=== PATIENT | female | born 1955 | race Caucasian/White ===

== ENCOUNTER 2019-10-15 12:29 | Outpatient (CLI) | payer BC, SELFPAY ==
[2019-10-15 13:03] LABS: Basophils Percent Auto 0.4 % (0.2-1.2); Eosinophils Absolute Auto 0.2 K/mm3 (0-0.3); Eosinophils Percent Auto 2.8 % (0-4.4); Hematocrit 37.7 % (37.0-47.0); Hemoglobin 12.8 g/dL (12.0-15.0); Immature Granulocyte Absolute 0.03 K/mm3 (0.00-0.031); Immature Granulocyte Percent A 0.4 % (0-0.5); Lymphocytes Absolute Auto 1.86 K/mm3 (0.9-3.2); Lymphocytes Percent Auto 27.5 % (18.3-44.2); Mean Corpuscular Hemoglobin 30.4 pg (26-34); Mean Corpuscular Volume 89.5 fl (80-100); Mean Platelet Volume 9.9 fl (7.4-10.4); Monocytes Absolute Auto 0.5 K/mm3 (0.1-0.6); Monocytes Percent Auto 7.1 % (2.6-8.5); Neutrophils Absolute Auto 4.2 K/mm3 (1.3-6.7); Neutrophils Percent Auto 61.8 % (45.5-73.1); Platelet Count Result 250 k/mm3 (150-375); Red Blood Count 4.21 M/mm3 (4.2-5.4); Red Cell Distribution Width 12.7 % (11.5-14.5); White Blood Count 6.8 K/mm3 (4.5-10.0)
[2019-10-15 13:16] LABS: Alanine Aminotransferase 23 U/L (4-35); Albumin Level 4.4 g/dL (3.5-5.1); Alkaline Phosphatase 72 U/L (38-126); Aspartate Amino Transferase 29 U/L (14-36); Bilirubin,Total 0.2 mg/dL (0.2-1.3); Blood Urea Nitrogen 23 mg/dL (7-17); Calcium 9.6 mg/dL (8.4-10.2); Carbon Dioxide 27 mmol/L (22-30); Chloride 104 mmol/L (98-107); Cholesterol 246 mg/dL (0-200); Estimated Glomerular Filt Rate 50; Glucose 114 mg/dL (65-105); HDL Direct 55 mg/dL; Potassium 3.6 mmol/L (3.4-5.0); Sodium 139 mmol/L (137-145); Triglycerides 200 mg/dL (<150)
[2019-10-15 13:28] LABS: LDL Cholesterol Direct 141 mg/dL
== END 2019-10-15 12:30 | disposition home or self-care (01) ==
PROVIDERS: PCP Family Medicine; Visit Provider Nurse Practitioner
DX: E78.5 Hyperlipidemia, unspecified (principal); I10 Essential (primary) hypertension
CPT/HCPCS: 36415; 80053; 80061; 85025

== ENCOUNTER 2020-05-12 13:39 | Outpatient (CLI) | payer BC, SELFPAY ==
--- NOTE | ~2020-05-12 | XR_ITS ---
XR lumbar spine 2-3V DATE: 05/12/2020 14:04 INDICATION: Low back pain. No injury. TECHNIQUE: AP, lateral, coned lateral lumbosacral views COMPARISON: None FINDINGS: Diffuse osteopenia. Degenerative spurring is noted in the lower thoracic spine. No fracture or bone destruction or spondylolisthesis of the lumbar spine is evident. The lumbar pedic les are intact. There is mild lumbar dextroscoliosis. There is severe degenerative disc disease at L3-4 and L4-5. The sacroiliac joints are intact. Status post cholecystectomy. There is a prominent amount of fecal material within the colon but no apparent bowel obstruction. Mul tiple splenic calcified granulomas. IMPRESSION: Severe degenerative disc disease at L3-4 and L4-5 Osteopenia Reviewed, dictated and finalized at location B. AINABILITY DIRECTOR
== END 2020-05-12 13:40 | disposition home or self-care (01) ==
LOC: ANHIMG 13:48
PROVIDERS: PCP Family Medicine; Visit Provider Nurse Practitioner
DX: M54.5 Low back pain (principal); M20.21 Hallux rigidus, right foot; M20.22 Hallux rigidus, left foot; M51.36 Other intervertebral disc degeneration, lumbar region; M85.88 Other specified disorders of bone density and structure, other site
CPT/HCPCS: 72100; 77002

== ENCOUNTER 2020-11-19 07:54 | Outpatient (CLI) | payer BC, SELFPAY ==
--- NOTE | ~2020-11-19 | DEXA_ITS ---
Bone Density Report Name: Erin Abraham Age: 65 Sex: Female Ethnicity: White Date of : 1955 Indication: postmenopausal; cancer; hysterectomy; Referring Provider: Olivia Hendrickson Study: Bone densitometry was performed. Exam Date: November 19, 2020 Accession number: [id number] Bone Density: Region BMD T-score Z-score Classification AP Spine (L1, L2) 1.083 0.9 2.5 Normal Femoral Neck (Left) 0.753 -0.9 0.6 Normal Total Hip (Left) 1.023 0.7 1.8 Normal Total Hip Bilateral Avg 1.004 0.5 1.7 Normal Femoral Neck (Right) 0.729 -1.1 0.4 Osteopenia Total Hip (Right) 0.984 0.3 1.5 Normal World Health Organization criteria for BMD impression classify patients as: Normal (T-score at or above -1.0), Osteopenia (T-score between -1.0 and -2.5), or Osteoporosis (T-score at or below -2.5). 10-year Fracture Risk(1): Major Osteoporotic Fracture 6.6% Hip Fracture 0.4% Reported Risk Factors: [place] (), Neck BMD=0.729, BMI=48.2 (1) FRAX(R) Version 3.08. Fracture probability calculated for an untreated patient. Fracture probability may be lower if the patient has received treatment. Clinical Information Provided by Patient: Has used the following medications: Vitamin D, Calcium Has the following medical conditions: Cancer, Hysterectomy Patient maximum height was 61 Menopause Age: 51 No regular weight bearing exercise Does not regularly consume dairy products Drinks caffeinated beverages Onset of menses at age 10 Number of children 2 Impression: The patient has low bone mass, based on the Right Femoral Neck T-score. The patient has an estimated ten-year risk of hip fracture of 0.4% and an estimated ten-year risk of major fracture of 6.6%, based on the WHO FRAX algorithm. Discussion: BONE DENSITY IS LOW AT ONE OR MORE SKELETAL SITES. This patient's lowest T-score is low at one or more skeletal sites. It meets the World Health Organization's (WHO) criteria for ?low bone mass? (T-score between -1.0 and -2.5). The patient's 10-year risk of fracture as calculated by FRAX is less than the threshold where pharmacological therapy is recommended by the National Osteoporosis Foundation (NOF). However, all treatment decisions require clinical judgment and consideration of individual patient factors, including patient preferences, comorbidities, previous drug use, risk factors not captured in the FRAX model (e.g., frailty, falls, vitamin D deficiency, increased bone turnover, interval significant decline in bone density) and possible under or overestimation of fracture risk by FRAX. The patient should follow a healthful lifestyle (good nutrition with adequate calcium and vitamin D, and appropriate weight-bearing exercise). Follow-Up: Consider repeating this study in 2 to 3 years to reassess this patient's status, or sooner
== END 2020-11-19 07:55 | disposition home or self-care (01) ==
LOC: ANHIMG 07:55
PROVIDERS: PCP Family Medicine; Visit Provider Nurse Practitioner
DX: Z78.0 Asymptomatic menopausal state (principal); M85.851 Other specified disorders of bone density and structure, right thigh
CPT/HCPCS: 77080

== ENCOUNTER 2020-11-19 08:19 | Outpatient (CLI) | payer BC, SELFPAY ==
[2020-11-19 08:56] LABS: Basophils Absolute Auto 0.1 K/mm3 (0.0-0.1); Eosinophils Absolute Auto 0.3 K/mm3 (0-0.3); Hematocrit 39.2 % (37.0-47.0); Hemoglobin 12.8 g/dL (12.0-15.0); Lymphocytes Absolute Auto 1.52 K/mm3 (0.9-3.2); Lymphocytes Percent Auto 29.4 % (18.3-44.2); Mean Corpuscular HGB Conc 32.7 g/dl (32-36); Mean Corpuscular Hemoglobin 30.6 pg (26-34); Mean Corpuscular Volume 93.8 fl (80-100); Mean Platelet Volume 9.6 fl (7.4-10.4); Monocytes Absolute Auto 0.4 K/mm3 (0.1-0.6); Monocytes Percent Auto 8.1 % (2.6-8.5); Neutrophils Absolute Auto 2.9 K/mm3 (1.3-6.7); Neutrophils Percent Auto 56.5 % (45.5-73.1); Platelet Count Result 222 k/mm3 (150-375); Red Blood Count 4.18 M/mm3 (4.2-5.4); White Blood Count 5.2 K/mm3 (4.5-10.0)
[2020-11-19 09:11] LABS: Alanine Aminotransferase 29 U/L (4-35); Albumin Level 4.4 g/dL (3.5-5.1); Alkaline Phosphatase 71 U/L (38-126); Anion Gap 7 mmol/L (8-16); Aspartate Amino Transferase 30 U/L (14-36); Bilirubin,Total 0.2 mg/dL (0.2-1.3); Blood Urea Nitrogen 22 mg/dL (7-17); Calcium 9.8 mg/dL (8.4-10.2); Carbon Dioxide 24 mmol/L (22-30); Chloride 109 mmol/L (98-107); Cholesterol 197 mg/dL (0-200); Estimated Glomerular Filt Rate 56; Glucose 103 mg/dL (65-105); HDL Direct 56 mg/dL; Potassium 4.5 mmol/L (3.4-5.0); Sodium 140 mmol/L (137-145); Triglycerides 213 mg/dL (<150)
[2020-11-19 09:21] LABS: LDL Cholesterol Direct 86 mg/dL
[2020-11-19 10:00] LABS: Vitamin D 25 Hydroxy 46.9 ng/mL
== END 2020-11-19 08:20 | disposition home or self-care (01) ==
LOC: ANHLAB 08:21
PROVIDERS: PCP Family Medicine; Visit Provider Nurse Practitioner
DX: E78.5 Hyperlipidemia, unspecified (principal); I10 Essential (primary) hypertension; E55.9 Vitamin D deficiency, unspecified
CPT/HCPCS: 36415; 80053; 80061; 82306; 85025